=== PATIENT | female | born 1970 | race Caucasian/White ===

== ENCOUNTER 2025-02-16 08:58 | Outpatient (REF) | payer OTHER, SELFPAY ==
[2025-02-16 13:47] LABS: Appearance Urine Clear; Glucose Urine UA Negative (Negative); PH 7.0 (5.0-9.0); Specific Gravity - Urine 1.010 (1.005-1.025)
[2025-02-16 14:40] LABS: MANUAL DIFF FLAG NO
[2025-02-16 14:46] LABS: Hematocrit 42.3 % (37.0-47.0); Hemoglobin 14.0 g/dl (12.0-16.0); Imm Gran Abs Auto 0.03 X10*3/uL (0.00-0.03); Imm Gran Pct Auto 0.4 % (0.0-0.4); Lymphocytes Absolute Auto 2.3 X10*3/uL (1.2-4.9); Mean Corpuscular HGB Conc 33.1 g/dl (31.0-35.0); Mean Corpuscular Hemoglobin 28.8 pg (27.0-33.0); Mean Corpuscular Volume 87.0 fL (80.0-98.0); NRBC Abs Auto 0.000 X10*3/uL (0.0-0.012); NRBC Pct Auto 0.0 /100WBC (0.0-0.2); Platelet Count 361 X10*3/uL (160-400); Red Blood Count 4.86 X10*6/uL (4.20-5.50); White Blood Count 6.9 X10*3/uL (4.8-10.8)
[2025-02-16 16:03] LABS: Alanine Aminotransferase 36 U/L (0-31); Albumin Level 5.0 g/dL (3.5-5.0); Alkaline Phosphatase 62 U/L (39-117); Anion Gap 11 (12-20); Aspartate Amino Transferase 36 U/L (5-31); Blood Urea Nitrogen 12 mg/dL (9-16); Calcium 9.6 mg/dL (8.4-10.2); Carbon Dioxide 26 mmol/L (22-29); Chloride 105 mmol/L (96-108); Cholesterol 270 mg/dL (<200); Estimated Glomerular Filt Rate > 60; HDL Cholesterol 40 mg/dL (>40); Magnesium 2.2 mg/dL (1.6-2.6); Potassium 4.1 mmol/L (3.3-5.1); Sodium 138 mmol/L (135-145); Total Protein 7.9 g/dL (6.5-8.0); Triglycerides 277 mg/dL (<150)
[2025-02-16 16:26] LABS: Folate 5.7 ng/mL (> or = 4.0); Vitamin B12 602 pg/mL (200-900)
[2025-02-17 04:47] LABS: Syphilis Screen Nonreactive (Nonreactive)
[2025-02-17 05:26] LABS: HBS Num1 53.17 mIU/mL (0-7.99); HIV Num 1 0.05 S/CO (0.00-0.99); ~HepC Num1 0.07 S/CO (0.00-0.79); ~Hepatitis B Surface Antibody REACTIVE (Nonreactive); ~Hepatitis C Antibody Nonreactive (Nonreactive)
[2025-02-18 13:27] LABS: HBsAGNum1 0.27 S/CO (0.00-0.99); Hepatitis B Surface Antigen Negative (Negative)
[2025-02-20 13:38] LABS: Vitamin D 25-OH, D2 <4 ng/mL; Vitamin D 25-OH, D3 25 ng/mL; Vitamin D 25-OH, Total 25 ng/mL (30-100)
== END 2025-02-16 08:59 | disposition home or self-care (01) ==
LOC: HO.HKASLDS 08:58
PROVIDERS: PCP Student in an Organized Health Care Education/Training Program; Visit Provider Student in an Organized Health Care Education/Training Program
DX: Z13.9 Encounter for screening, unspecified (principal); M54.2 Cervicalgia; Z79.899 Other long term (current) drug therapy
CPT/HCPCS: 36415; 80053; 80061; 81003; 82043; 82306; 82570; 82607; 82746; 83036; 83735; 84443; 85025; 86706; 86780; 86803; 87340; 87389; 96127

== ENCOUNTER 2025-02-16 08:58 | Outpatient (AMB) | payer OTHER, SELFPAY ==
--- NOTE | 2025-02-16 09:04 | A.OFFPC_ITS ---
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 Note: Patient present to [facility] Field Attendant Required: No Accompanied by: Self / Same As Patient Allergies No Known Allergies Allergy (Verified 02/16/25 09:09) Medication List - Last Reconciled 02/16/25 by Murray Morris MD cyclobenzaprine 5 mg PO BEDTIME ibuprofen 800 mg PO Q8H lisinopril 20 mg PO DAILY Tobacco use date assessed: 02/16/25 Dental Screening Dental Screen Date: 02/16/25 Did you have a dental visit in the last 12 months?: Yes Did you have a dental problem in the last 6 months where you did not have access to dental care?: No Was dental information given to patient?: Patient has dentist HPI HPI Comments History of Present Illness Details History of Present Illness The patient is a 54 year old female presenting for establishment of [facility]. Hypertension: She has a history of hypertension, managed with lisinopril 20 mg daily. Her blood pressure was noted to be elevated during the visit. She has not seen a primary care doctor or had blood work in approximately two years since her previous doctor . Neck Pain: The patient reports left-sided neck pain for the past month, which she describes as painful with movement and associated with a popping or clicking sound when she turns her head to the left. She denies any radiation of pain or paresthesias down her arm. 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 She has tried heat and massage from friends without relief and has not taken any medication for the pain. Surgical History: - Denies any past surgeries. Medications: - Lisinopril 20 mg daily for hypertensio n. 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 - Tobacco Use: Denies smoking. - Alcohol Use: Denies drinking alcohol. - Substance Use: Denies current or past illicit drug use. - Family Status: The patient has three c hildren, all via normal spontaneous vaginal delivery. Diagnostic Results: - Colonoscopy: Performed this year, a po lyp was found and was negative. Repeat in 5 years recommended. - Mammogram: Last performed 1.5 years ag o, with screenings every two years. - Pap smear: All previous results have b een good, with screenings every five years. Past Medical History - Hypertension, managed with lisinopril 20 mg. - History of a benign colon polyp, found on colonoscopy this year. - Denies any history of hospitalizations . Health Maintenance - Mammogram: Last done 1.5 years ago, sh e gets them every 2 years. - Pap smear: Screens every 5 years, last results were good. - Colonoscopy: Performed this year, a be nign polyp was found. Repeat is due in 5 years. 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 1. Little interest or pleasure in doing things: not at all 2. Feeling down, depressed, or hopeless: not at all 3. Trouble falling or staying asleep, or sleeping too much: not at all 4. Feeling tired or having little energy: not at all 5. Poor appetite or overeating: not at all 6. Feeling bad about yourself - or that you are a failure or have let yourself or your family down: not at all 7. Trouble concentrating on things, such as reading the newspaper or watching television: not at all 8. Moving or speaking so slowly that other people could have noticed. Or the opposite - being so fidgety or restless that you have been moving around a lot more than usual: not at all 9. Thoughts that you would be better off or of hurting yourself in some way: not at all Total score: 0 Source: Developed by Drs. Dalton Woo, Chapincito Adams and colleagues, with an educational cedric from [employer]. Thrive Questionnaire I am a: Patient What is your living situation today?: I have a steady place to live Within the past 12 months, did the food you bought not last and you didn't have the money to get more?: Never true Within the past 12 months, did you worry whether your food would run out before you got money to buy more?: Never true Do you have trouble paying for medicines?: No Do you have trouble getting transportation to medical appointments?: No Do you have trouble paying your heating and electricity bill?: No Do you have trouble taking care of your child, family member or friend?: No Are you currently unemployed and looking for a job?: No Are you interested in more education?: No Please select the resources that you would like help with: None Currently or been in a relationship where the following occur: I choose not to answer THRIVE Score: 0 AUDIT C Alcohol Use Questionnaire (AUDIT-C) 1. How often do you have a drink containing alcohol?: Never Total Score: 0 MARITA-7 AMB Questionnaire MARITA-7 Feeling nervous, anxious, or on edge: 0 = Not at all Not being able to stop or control worryin = Not at all Worrying too much about different things: 0 = Not at all Trouble relaxin = Not at all Being so restless that it is hard to sit still: 0 = Not at all Becoming easily annoyed or irritable: 0 = Not at all Feeling afraid as if something awful might happen: 0 = Not at all Total MARITA-7 score (0-4 normal; 5-9 mild; 10-14 moderate; 15-21 severe): 0 Source: Developed by Drs. Dalton Woo, Rand Messer, Chapincito Holland and colleagues, with an educational cedric from [employer]. Review of Systems Narrative Review of Systems - Musculoskeletal: Reports left-sided neck pain with movement for one month, associated with a popping sensation. Denies radiation of pain or paresthesias into the arm. - General: Reports good sleep and energy if she goes to sleep on time. - Genitourinary: Reports regular monthly menses that are not heavy. Urination is reported as good. - Gastrointestinal: Bowel movements are reported as good. 10-point ROS reviewed and negative except as noted in HPI Physical exam (Primary Care) Vital Signs: Last Vital Signs Temp 97.8 F 02/16/25 09:11 Pulse 64 02/16/25 09:11 Resp 16 02/16/25 09:11 BP 169/82 H 02/16/25 09:11 Pulse Ox 98 02/16/25 09:11 Oxygen Delivery Method Room Air 02/16/25 09:11 BMI result Body Mass Index 30.4 Tobacco/Smoking Status: Tobacco use Status Tobacco use date assessed 02/16/25 02/16/25 09:05 Patient Tobacco Use Status Never used Tobacco 02/16/25 09:13 e-Cigarette/Vaping Use Never Used 02/16/25 09:11 PHQ-9: PHQ-9 Score PHQ-9: Total score 0 02/16/25 09:23 Currently or been in a relationship where the following occur: I choose not to answer Narrative Physical Exam General: Well-appearing, in no acute distress. Vital signs: Blood pressure is elevated today. HEENT: Normocephalic, atraumatic. PERRLA, EOMI. Conjunctiva clear, sclera anicteric. Oropharynx clear, mucous membranes moist. TMs intact bilaterally. Neck: Supple, no lymphadenopathy, no thyromegaly, no JVD or carotid bruits. Reports pain and popping on the left side of the neck, with tight and painful muscles. Cardiovascular: RRR, normal S1/S2, no murmurs, rubs, or gallops. Peripheral pulses 2+ and symmetric. No edema. Respiratory: Lungs clear to auscultation bilaterally, no wheezes, rales, or rhonchi. Normal effort. Abdomen: Soft, non-tender, non-distended. Normoactive bowel sounds. No hepatosplenomegaly, no masses. MSK: Full range of motion, no joint swelling or deformity. Normal gait. Reports neck pain with movement to the left, with a clicking sound. Skin: Warm, dry, intact. No rashes, lesions, or pallor. Neuro: Alert and oriented x3. Cranial nerves II-XII intact. Strength 5/5 throughout. Sensation intact. Reflexes 2+ symmetric. Normal coordination and gait. Psych: Appropriate mood and affect. Normal judgment and insight. Coding Level of Care Code New Pt Level 4 (29758) Add On Problem Visit Only Diagnoses Neck pain, musculoskeletal M54.2 Assessment & Plan Assessment & Plan (1) Neck pain, musculoskeletal: Code(s): M54.2 - Cervicalgia Category: Medical Plan Consent The patient provided verbal consent to proceed with the proposed plan, which includes comprehensive lab work and a trial of medication for neck pain. Patient was informed and verbally consented to the use of an ambient scribe for clinic note documentation during this visit. Plan 1. Wellness Visit - Comprehensive lab work will be ordered to establish a baseline, including a complete blood count (CBC), comprehensive metabolic panel (CMP), hemoglobin A1c, hepatitis B and C, HIV screen, lipid panel, magnesium, urine microalbumin, syphilis screen, thyroid function tests, urinalysis, vitamin B12, folate, and vitamin D. - The patient was advised she can have the labs drawn today and does not need to fast for them. - A follow-up appointment is scheduled in two weeks to review the results and address any issues. 2. Hypertension - The patient's request for a lisinopril refill will be addressed after reviewing the results of the comprehensive metabolic panel to assess renal function and electrolytes, as lisinopril can affect the kidneys. 3. Neck Pain - A trial of an anti-inflammatory and a muscle relaxant was recommended for her neck pain, which is likely due to inflammation and muscle tightness. - Prescribed ibuprofen 800 mg as needed every 8 hours with food. - Prescribed cyclobenzaprine 5 mg as needed. - The patient was counseled to take cyclobenzaprine at night initially due to potential drowsiness. - If her symptoms do not improve in two weeks with this regimen, a cervical spine X-ray will be considered. Discussion Notes I introduced myself to the patient, who is here to establish care. We discussed her history of hypertension and her complaint of neck pain, which has been present for a month. I explained that the pain is likely due to inflammation and muscle tightness, and that massage alone can sometimes worsen inflammation. I proposed a two-week trial of ibuprofen 800 mg and cyclobenzaprine 5 mg as needed. I informed her that cyclobenzaprine may cause drowsiness and should be taken at night initially. I also made her aware of the risk of taking NSAIDs like ibuprofen with hypertension due to potential kidney effects, but explained it would be a short course. I explained the plan to order comprehensive lab work to get a baseline of her health and to check her kidney function before refilling her lisinopril. We will follow up in two weeks to review lab results and reassess her neck pain, at which point we will consider a cervical spine X- ray if there is no improvement. The patient agreed with the plan. Patient Instructions - For neck pain, take Ibuprofen 800 mg every 8 hours as needed with food. - For neck muscle tightness, take one Cyclobenzaprine 5 mg tablet as needed. Take the first dose at night before bed, as it may cause drowsiness. - You can use heat on your neck. - Go to the lab to have your blood and urine samples collected. You do not need to fast (go without eating) for these tests. - Return for a follow-up visit in two weeks to discuss your lab results and check on your neck pain. - Your prescription for lisinopril will be refilled for three months after your lab results are reviewed. Medical Decision Making The patient is a 54-year-old female establishing primary care. She has a history of hypertension and complains of new-onset left-sided neck pain for one month without a clear traumatic trigger. Her blood pressure is elevated on today's reading. The neck pain is localized, non-radiating, and associated with popping, and the physical exam reveals tight neck muscles, suggesting a musculoskeletal origin likely related to inflammation and muscle spasm, possibly from her physically demanding job. The initial management will be conservative, with a short course of an NSAID (ibuprofen) and a muscle relaxant (cyclobenzaprine), as she has not tried any anti-inflammatory medications. Although NSAIDs can affect renal function in hypertensive patients, a short course is reasonable for this acute issue, with a plan to monitor. If this fails, imaging with a cervical spine X-ray will be the next step. Given that she has not had lab work in two years, comprehensive labs including CMP, CBC, A1c, lipids, and a urine microalbumin are warranted to establish a baseline, screen for comorbidities, and assess for any end-organ effects of her hypertension. A refill for lisinopril is contingent on the CMP results to ensure her renal function and electrolytes are stable. A follow-up in two weeks is planned to review all results and clinical progress. Total Time Statement 30 min Total time spent caring for the patient today includes pre-visit chart review, documentation, review of laboratory and diagnostic imaging results, medication reconciliation, medically necessary evaluation, counseling on diagnoses, care coordination, ordering appropriate tests and medications, review of tests performed by other providers, reporting test results to the patient, and communication with other healthcare providers. Orders: Orders Complete Blood Count Auto Diff Today Z13.9 - Encounter for screening, unspecified Hepatitis C Antibody Today Z13.9 - Encounter for screening, unspecified Vitamin B12 and Folate Today Z13.9 - Encounter for screening, unspecified Hemoglobin A1c Today Z13.9 - Encounter for screening, unspecified Hepatitis B Surface Antigen Today Z13.9 - Encounter for screening, unspecified Syphilis Screen Today Z13.9 - Encounter for screening, unspecified Comprehensive Met. Panel Today Z13.9 - Encounter for screening, unspecified TSH reflex Free T4 Today Z13.9 - Encounter for screening, unspecified HIV Ab/Ag Today Z13.9 - Encounter for screening, unspecified UA CC w/rflx Micro + Cult Today Z13.9 - Encounter for screening, unspecified Lipid Panel Today Z13.9 - Encounter for screening, unspecified Magnesium Today Z13.9 - Encounter for screening, unspecified Hepatitis B Surface Antibody Today Z13.9 - Encounter for screening, unspecified Microalbumin, Random (w Creat) Today Z13.9 - Encounter for screening, unspecified Vitamin D 25-OH (D2 and D3) Today Z13.9 - Encounter for screening, unspecified Medications: New cyclobenzaprine 5 mg PO BEDTIME 14 tabs 0RF ibuprofen 800 mg PO Q8H 30 tabs 0RF
[2025-02-16 09:11] VITALS: BP 169/82; PULSE 64; RESP 16; TEMP 36.6; O2SAT 98; BMI 30.4
--- OUTSIDE RECORDS SUMMARY | 2025-02-16 10:04 | XMS_ITS ---
Author Name [facility] Organization Unknown Problems Problem Status Onset Date Problem Type Date of Resoluti on Source Encounter for screening colonoscopy active EncounterDiagnosisAct CCT Care Team Organization Name Specialty Phone Email Start Date End [facility]
--- OUTSIDE RECORDS SUMMARY | 2025-02-16 10:04 | XMS_ITS ---
Author Organization Unknown ENCOUNTERS Encounter Performer Location Date Diagnosis Diagnosis Status Outpatient LINDA PARRA [address] [id number] [facility] JIN DONIS [facility] [address] [place] [id number] [facility] [address] [id number] [facility] [address] [id number] [facility] FRANCK [address] [id number] [facility] ELDA MADDEN [address] [id number] [facility] Out[facility] [address] [id number] [facility] [address] [id number] [facility] [address] [id number] [facility] Emergency [address] [id number] [facility] *Note: Encounters from your own facility or health system may be excluded. Allergies, Adverse Reactions, Alerts Allergen Type Severity Identification Date Medications Name Date Quantity Days Supplied GPI Number
--- OUTSIDE RECORDS SUMMARY | 2025-02-16 10:04 | XMS_ITS | Clinical Summary ---
Author Organization [facility] Prior to 08/01/[address] [place] [id number] Care Team Providers Care Administrator Pesticide Name Role Phone Unknown, Primary Care Provider Unavailabl e Social History Tobacco Use Types Packs/Day Years Used Date Smoking Tobacco: Never Assessed Sex and Gender Information Value Date Recorded Sex Assigned at Not on file Gender Identity Not on file Sexual Orientation Not on file Plan of Treatment Health Maintenance Due Date Last Done Comments Hepatitis B Vaccines (1 of 3 - 3-dose series) 1971 Hepatitis C Screening 1971 COVID-19 Vaccine (#1) 1971 Depression Screening 1983 Preventative Health Evaluation 05/21/1989 DTap / Tdap / Td (1 - Tdap) 05/21/1990 Cervical Cancer Screening (P ap Smear) 05/21/1992 Colon Cancer Screening (Colonoscopy) 05/21/2016 Breast Cancer Screening (Mammogram) 05/21/2021 Shingrix-Zoster Vaccine (1 of 2) 05/21/2021 Influenza Vaccine (#1) 2024 Pneumococcal Vaccine Aged Out No long er eligible based on patient's age to complete this topic RSV Ped < 20 months Aged Out No longe r eligible based on patient's age to complete this topic Care Teams Administrator Pesticide Relationship Specialty Start Date End Date Unknown, PCP - General 12/28/19
--- OUTSIDE RECORDS SUMMARY | 2025-02-16 10:04 | XMS_ITS | Patient Health Record ---
Author Organization [facility] Address [address] [place] [address] Care Team Providers Care Senior Ui Ux Developer Name Role Phone MATHEW HIRSCH, ESTELLE Primary Care Provider ESTELLE Miller Unavailable Reason For Referral No Information Medications Medication SIG (Take, Route, Frequency, Duration) Notes Start Date End Date Status Medical Compression Stockings - Miscellaneous as directed 11/15/2016 Ac tive Immunizations Vaccine Route Administration Date Status Comme nts PPD read Unknown 10/30/2012 Administered PPD, TB Intradermal Test ID Intradermal 10/28/2012 Adminis tered Tdap (Adacel) IM Intramuscular 10/28/2012 Administered Social History Tobacco Use: Social History Observation Description Date Details (start date - stop date) Never Smoker NA - NA Social History Drug/Alcohol: Social Info Question Answer Notes Alcohol Screen Did you have a drink containing alcohol in the past year? Yes How often did you have a drink containing alcohol in the past year? 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) Problems Problem Type SNOMED Code ICD Code Onset Dates Problem Status W/U Status Risk Notes Problem Herpetic gingivostomatitis (37323045) 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 Problem Varicose veins of lower extremity (66306826) Varicose vein of leg (I83.90) Active confirmed Problem Obese class I (finding) (101109819619122) Obesity, Class I, BMI 30-34.9 (E66.9) Active confirmed Problem Somnolence (31612697) Somnolence , daytime (R40.0) Active confirmed Problem hypercholesterolemia (disorder) (98290756) Hypercholesteremia (E78.00) Active confirmed Problem Family history of hypercoagulability (420093142655749) Family history of hypercoagulability (Z83.2) Active confirmed Plan Of Treatment No Information Insurance Providers Payer Name Payer Address Payer Phone Subscriber Number Group Number Insured Name Patient Relationship to Insured Coverage Start Date Coverage End Date BLUE CR[employer] BLUE [facility] [address] [place] [address] [id number] CATA PAULSON Spouse - patient is the spouse of the insured 3 Medical (General) History Medical History History ICD Code Hypercholesterolemia Family history of hypercoagulability, pt facotr V Leiden positive Gynecology - Dr Loredo Surgical History Surgery Date(Month/Year)
--- OUTSIDE RECORDS SUMMARY | 2025-02-16 10:04 | XMS_ITS | Clinical Summary ---
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 I encouraged her to continue working on her weight and increase her aerobic exercise. She is to monitor her blood pressure at least a few times a month and bring the readings to her next appointment in 6 months. Family History Relation Status Comments Father Maternal Grandfather Maternal Grandmother Mother Alive Paternal Grandfather Paternal Grandmother Sister 1 Alive Sister 2 Alive Social History Tobacco Use Types Packs/Day Years Used Date Smoking Tobacco: Never Smokeless Tobacco: Never Alcohol Use Standard Drinks/Week Comments Yes 1 (1 standard drink = 0.6 oz pur e alcohol) Education Answer Date Recorded Are you interested in more education? Not on pawan e 06/29/2022 Are you concerned about learning? Not on file 06/29/2022 No 06/29/2022 No 06/29/2022 Digital Access Answer Date Recorded No 07/28/2022 No 07/28/2022 No 07/28/2022 Reliable internet access at home? Not on file 07/28/2022 Device with a working camera? 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 Not on file Not on file Not on fi le Last Filed Vital Signs Vital Sign Reading Time Taken Comments Blood Pressure 132/70 05/21/2018 8:26 AM EDT Pulse 70 05/21/2018 8:26 AM EDT Temperature - - Respiratory Rate - - Oxygen Saturation 98% 05/21/2018 8:26 AM EDT Inhaled Oxygen Concentration - - Weight 80.1 kg (176 lb 8 oz) 05/21/2018 8:26 AM EDT Height 160 cm (5' 3 ) 05/21/2018 8:26 AM EDT Body Mass Index 31.27 05/21/2018 8:26 AM EDT Plan of Treatment Health Maintenance Due Date Last Done Comments Adult Td,Tdap Booster 1971 LIPID PANEL 1971 DEPRESSION SCREENING 1983 HEPATITIS C SCREENING 05/21/1989 HIV ONE-TIME SCREENING (18-6 5 YEARS) 05/21/1989 PAP SMEAR 05/21/1992 MAMMOGRAM 2011 COLOGUARD 05/21/2016 COLONOSCOPY 05/21/2016 COLORECTAL CANCER SCREENING 05/21/2016 FIT TEST 05/21/2016 FOBT 05/21/2016 SIGMOIDOSCOPY 05/21/2016 VIRTUAL COLONOSCOPY 05/21/2016 PNEUMOCOCCAL VACCINES (50+ y ears) (1 of 1 - PCV) 05/21/2021 ZOSTER VACCINES (1 of 2) 05/21/2021 INFLUENZA VACCINE (#1) 2024 COVID-19 VACCINE ( - 2024-2 6 season) 2024 RSV VACCINE (1 - 1-dose 75+ series) 05/21/2046 SMOKING STATUS SCREENING (On ce After 26 Yrs) Completed 05/21/2018 HEPATITIS A VACCINES Aged Out No long er eligible based on patient's age to complete this topic HIB VACCINES Aged Out No longer eligi ble based on patient's age to complete this topic MENINGOCOCCAL VACCINES (ACWY) Aged Out No longer eligible based on patient's age to complete this topic MENINGOCOCCAL VACCINES (B) Aged Out N o longer eligible based on patient's age to complete this topic Medical Devices Not on file Insurance [email or web address] P[employer] Member Subscriber Plan / Payer (Ef fective 2018-Present) Name:Krista Collazo Relation to Subscriber:Spouse Name:CATA COLLAZO Date of :1969 (Home) Address: [address] [place] [address] Payer ID:[id number] (NAIC) Type:PPO Address: [address] [place] [id number] Care Teams Surgical Appliances Salesperson Relationship Specialty Start Date End Date Pcp, Unknown PCP - General 08/28/21 Additional Source Comments The information contained in this document represents components of the legal health record. It is not the complete legal health record.[facility]
== END 2025-02-16 09:35 | disposition home or self-care (01) ==
LOC: HO.HMCFMS 08:59
PROVIDERS: Visit Provider Student in an Organized Health Care Education/Training Program
DX: M54.2 Cervicalgia (principal)